=== PATIENT | female | born 1990 | race Caucasian/White ===

== ENCOUNTER 2021-09-14 10:57 | Emergency (ER) | payer MEDICAID, OTHER ==
[~2021-09-14] VITALS: Ht 165.1 cm; Wt 80.3 kg
[~2021-09-14 10:57] MED LIST: ALBU0.0939; MULT1CAP1 PO
[2021-09-14 11:14] VITALS: BP 112/74
--- NOTE | 2021-09-14 11:21 | NUR ---
PT AMBULATED TO BED 06.
--- NOTE | 2021-09-14 11:38 | NUR ---
PT IN GOWN. PELVIC SET UP AT BEDSIDE. URINE OBTAINED PREG /DIP COMPLETED
--- NOTE | 2021-09-14 11:40 | NUR ---
31YR OLD FEMALE BIB SELF C/O VAG BLEED WITH LOWER ABD CRAMPING X1 DAY. 5/10 PAIN. PT HAD POS PREG TEST AT HOME. DENIES SOB /CP A&OX4. NO DISTRESS NOTED. PT IN GOWN ON BED WITH SIDE RAIL UPX1. CODEINE ASTHMA
--- NOTE | 2021-09-14 11:59 | NUR ---
ER AT BEDSIDE
--- NOTE | 2021-09-14 12:23 | NUR ---
EDITOR SOUND AT BEDSIDE
--- NOTE | 2021-09-14 12:25 | NUR ---
ULTRASOUND AT BEDSIDE
[2021-09-14 12:44] LABS: APPEARANCE,URINE CLEAR (CLEAR); BILIRUBIN,URINE NEGATIVE (NEGATIVE); BLOOD, URINE 3+ (NEGATIVE); COLOR,URINE YELLOW (YELLOW); LEUKOCYTE ESTERASE ,URINE NEGATIVE (NEGATIVE); NITRITE, URINE NEGATIVE (NEGATIVE); PH,URINE 6.5 (5.0-9.0); UGLUCOSE NEGATIVE (NEGATIVE)
[2021-09-14 12:49] LABS: BASOPHILS # (AUTO) 0.1 K/uL (0.00-0.22); BASOPHILS % (AUTO) 0.7 % (0.0-2.0); EOSINOPHILS # (AUTO) 0.1 K/uL (0-0.4); HEMATOCRIT 41.2 % (36-48); HEMOGLOBIN 13.7 g/dL (12.0-16.0); LYMPHOCYTES # (AUTO) 1.9 K/uL (2.5-16.5); LYMPHOCYTES % (AUTO) 23.4 % (20.5-51.1); MEAN CORPUSCULAR HEMOGLOBIN 27 pg (27-31); MEAN CORPUSCULAR HGB CONC 33 g/dL (33-37); MEAN CORPUSCULAR VOLUME 81.7 fL (80-94); MONOCYTES # (AUTO) 0.4 K/uL (0.8-1.0); MONOCYTES % (AUTO) 5.1 % (1.7-9.3); NEUTROPHILS # (AUTO) 5.6 K/uL (1.8-7.7); NEUTROPHILS % (AUTO) 69.8 % (42.2-75.2); PLATELET COUNT (AUTO) 327 K/uL (140-450); RED BLOOD CELL COUNT(AUTO) 5.05 MIL/uL (4.20-5.40); RED CELL DISTRIBUTION WIDTH 14.2 % (11.6-13.7)
--- NOTE | 2021-09-14 13:29 | NUR ---
PT PAIN LEVEL DOWN 3/10. PT RESTING IN BED. PENDING LAB /ULTRASOUND RESULTS. SIDE RAIL UP X1 HOB ELEVATED. BED AT LOWEST POSITION.
[2021-09-14 13:57] VITALS: BP 98/55
--- NOTE | 2021-09-14 13:57 | NUR ---
Patient discharged with v/s stable. Written and verbal after care instructions given and explained. Patient verbalized understanding. Ambulatory with steady gait. All questions addressed prior to discharge. Advised to follow up with PMD.
--- NOTE | 2021-09-14 13:58 | NUR ---
Chart checked and completed. The patient's care was reviewed and supervised by Rosie Rasmussen RN.
[2021-09-14 14:54] LABS: RBC,URINE TOO NUMEROUS TO COUN /HPF (0-5); WBC,URINE NONE SEEN /HPF (0-5)
== END 2021-09-14 13:57 | disposition home or self-care (01) ==
LOC: MED 10:57
DX: O20.0 Threatened abortion (principal); O99.511 Diseases of the respiratory system complicating pregnancy, first trimester; J45.909 Unspecified asthma, uncomplicated; Z3A.01 Less than 8 weeks gestation of pregnancy; Z86.69 Personal history of other diseases of the nervous system and sense organs; Z79.899 Other long term (current) drug therapy
CPT/HCPCS: 36415; 76817; 81001; 81025; 84702; 85025; 86900; 86901; 99284; Q0092